=== PATIENT | female | born 1995 | race Caucasian/White ===

== ENCOUNTER 2024-02-21 09:37 | Outpatient (CLI) | payer OTHER, SELFPAY | END 2024-02-21 09:38 | disposition home or self-care (01) | PROVIDERS: Visit Provider Obstetrics & Gynecology | DX: O20.9 Hemorrhage in early pregnancy, unspecified (principal) | CPT/HCPCS: 84702; 86850; 86900; 86901 ==

== ENCOUNTER 2024-03-07 15:56 | Outpatient (CLI) | payer OTHER, SELFPAY ==
--- NOTE | 2024-03-07 16:00 | CRLHL7_ITS ---
For Patients: As a result of the Century Cures Act, medical imaging exams and procedure reports are released immediately into your electronic medical record. You may view this report before your referring provider. If you have questions, please contact your health care provider. INDICATION: First trimester scan, establish dates. COMPARISON: None. TECHNIQUE: Real-time bull-scale imaging of the pelvis was performed. FINDINGS: Sonographic imaging demonstrates a single living intrauterine gestation. The embryo demonstrates a regular cardiac rate measuring 172 beats per minute. The embryo`s crown-rump length measurement of 2.2 cm corresponds to a gestational age of 9 weeks 0 days with a sonographic due date of 10/10/2024. There is a normal-appearing yolk sac. There are no gross abnormalities noted within the embryo at this early state of development. The gestational sac has a normal appearance. There is no evidence of a perigestational hemorrhage. The amount of fluid within the sac appears appropriate for gestational age. The cervix is closed. Posterior mid uterine fibroid is present which is exophytic and measures 6.1 x 6.1 x 4.8 cm. Corpus luteal cyst left ovary. Right ovary not visualized. There are no suspicious fluid collections noted in the cul-de-sac. IMPRESSION: Single living intrauterine with sonographic gestational age 9 weeks 0 days and sonographic due date of 10/10/2024. Posterior exophytic uterine fibroid measuring 6.1 cm. Dictated by Fahad Frazier MD @ 03/09/2024 7:14:37 AM (Electronically Signed)
== END 2024-03-07 15:57 | disposition home or self-care (01) ==
LOC: US 15:57
PROVIDERS: Visit Provider Registered Nurse
DX: Z34.91 Encounter for supervision of normal pregnancy, unspecified, first trimester (principal); O34.11 Maternal care for benign tumor of corpus uteri, first trimester; Z3A.09 9 weeks gestation of pregnancy
CPT/HCPCS: 76817; 86703; 86706; 86803; 86850; 86900; 86901; 87086; 87340; 87491; 87591

== ENCOUNTER 2024-03-07 17:07 | Outpatient (CLI) | payer OTHER, SELFPAY ==
[2024-03-08 01:17] LABS: Chlamydia DNA Amplified* NOT DETECTED (No Detected); GC DNA Amplified* NOT DETECTED (No Detected)
== END 2024-03-07 17:08 | disposition home or self-care (01) ==
PROVIDERS: Visit Provider Registered Nurse
DX: Z34.91 Encounter for supervision of normal pregnancy, unspecified, first trimester (principal); Z3A.08 8 weeks gestation of pregnancy
CPT/HCPCS: 86592; 86703; 86704; 86706; 86762; 86787; 86803; 86850; 86900; 86901; 87086; 87340; 87491; 87591

== ENCOUNTER 2024-05-30 15:58 | Outpatient (CLI) | payer OTHER, SELFPAY ==
--- NOTE | 2024-05-30 16:00 | CRLHL7_ITS ---
For Patients: As a result of the Century Cures Act, medical imaging exams and procedure reports are released immediately into your electronic medical record. You may view this report before your referring provider. If you have questions, please contact your health care provider. INDICATION: Evaluate anatomy. COMPARISON: 03/07/2024 TECHNIQUE: Real time bull scale imaging of the fetus was performed as well as color Doppler analysis of the umbilical vessels. FINDINGS: Sonographic imaging demonstrates a single living intrauterine gestation. Fetus demonstrates a regular cardiac rate of 150 beats per minute. Fetus has a breech position. The placenta lies posteriorly without evidence of placenta previa. Placental edge 7.2 cm from the internal cervical os. Amniotic fluid volume appears normal. Single deepest vertical pocket: 5.6 cm. The cervix is closed and measures 4.7 cm in length. The composite ultrasound gestational age is calculated at 21 weeks 3 days with an estimated sonographic due date of 10/07/2024. The estimated weight is 411 grams which lies at the 67th %. The following biometric measurements were obtained: Biparietal diameter: 4.9 cm/20 weeks 5 days 44th% Head circumference: 18.8 cm/21 weeks 1 day 51st% Abdominal circumference: 16.9 cm/21 weeks 6 days 77th% Femur length: 3.4 cm/20 weeks 4 days 31st% The HC/AC ratio measures: 1.11 range (1.06-1.24) On anatomic survey, there is a normal appearance of the cerebral ventricles, cavum septi pellucidi, cisterna magna and cerebellum. The nose, lips, and facial profile appear normal. The cervical, thoracic and lumbar spine are well visualized and appear normal. There is a normal four-chamber heart view and the left and right ventricular outflow tracts appear normal. The diaphragm and stomach appear normal. The kidneys and bladder also appear normal. There is a normal three-vessel cord and cord insertion site. The four extremities appear normal. Left posterior uterine fibroid again noted measuring 6.3 x 5.3 x 5.8 cm. IMPRESSION: Concordance of clinical and sonographic dating. No intrinsic abnormalities noted on anatomic survey. Similar uterine fibroid. Dictated by Fahad Frazier MD @ 05/31/2024 4:25:15 PM (Electronically Signed)
== END 2024-05-30 15:59 | disposition home or self-care (01) ==
PROVIDERS: Visit Provider Advanced Practice Midwife
DX: Z34.92 Encounter for supervision of normal pregnancy, unspecified, second trimester (principal); Z3A.21 21 weeks gestation of pregnancy
CPT/HCPCS: 76805

== ENCOUNTER 2024-07-18 16:11 | Outpatient (CLI) | payer OTHER, SELFPAY | END 2024-07-18 16:12 | disposition home or self-care (01) | LOC: NFLDREF 07-21 05:39 | PROVIDERS: Visit Provider Advanced Practice Midwife | DX: Z34.92 Encounter for supervision of normal pregnancy, unspecified, second trimester (principal); Z3A.27 27 weeks gestation of pregnancy | CPT/HCPCS: 86592 ==

== ENCOUNTER 2024-09-12 17:09 | Outpatient (CLI) | payer OTHER, SELFPAY ==
[2024-09-13 13:57] LABS: Strep B DNA Probe Negative (Negative)
[2024-09-14 00:53] LABS: Strep B Susceptibility Needed? No
== END 2024-09-12 17:10 | disposition home or self-care (01) ==
LOC: NFLDREF 17:09
PROVIDERS: Visit Provider Midwife
DX: Z34.93 Encounter for supervision of normal pregnancy, unspecified, third trimester (principal); Z3A.35 35 weeks gestation of pregnancy
CPT/HCPCS: 87081; 87653

== ENCOUNTER 2024-10-10 19:18 | Inpatient (IN) | payer OTHER, SELFPAY ==
[2024-10-10 19:32] VITALS: BMI 29.8
[2024-10-10 19:42] VITALS: BP 123/76; PULSE 71
--- NOTE | 2024-10-10 19:56 | W.PM.LDBA ---
Subjective History of Present Illness Narrative: Raya is a 29 yo at 39 6/7 weeks gestation is being admitted to Labor and Delivery for elective induction of labor due to weather/blizzard conditions coming in and childcare. She is having occasional contractions but nothing painful. She denies any leaking of fluid or bleeding. She is supported in labor by her , Donald. Her full history and physical was dictated by Vipul Motley CNM on 09/19/2024. She was in clinic earlier this evening and her cervix was 2/70/-2. Please see this for details. Specific Issues/Plans G 2 P 1 Dad: Donald; daughter: Calixto, it is another girl! H&P 09/19/24 William Motley CNM # Posterior exophytic uterine fibroid measuring 6.1 cm. # history of anxiety and depression. Currently stable without medication. Was on meds PP last delivery # Postcoital spotting. Pelvic exam normal. Chlamydia, gonorrhea, wet prep obtained. 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 Recommended. TDAP:07/31/24 RSV: 08/30/2024 Flu: 05/03/2024 OB - Problem Based A/P Additional Plan (1) Encounter for elective induction of labor: Status: Acute (2) Anxiety and depression: Status: Acute (3) 39 weeks gestation of : Status: Acute Plan ASSESSMENT:? 29 yo at 39.6 weeks gestation? complicated by:? # Posterior exophytic uterine fibroid measuring 6.1 cm. # history of anxiety and depression. Currently stable without medication. Was on meds PP last delivery # Postcoital spotting. Pelvic exam normal. Chlamydia, gonorrhea, wet prep obtained. 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 Category 1 FHR pattern.?? Labor complicated by: none? GBS negative? ? PLAN:? 1. Routine intrapartum cares as ordered. Continue with expectant management? 2. Monitoring per policy, continuous with cytotec.? 3. Planning an epidural when she is ready. Candidate for analgesia of choice, when desired.?? 4. Patient encouraged to reposition and ambulate to promote physiologic labor and .? 5. Anticipate ? Delivery/Labor/Induction Plan Plan: induction Induction method: per misoprostol protocol OB Exam Physical Exam Vital signs: Pulse BP 71 123/76 10/10/24 19:42 10/10/24 19:42 Narrative: Vitals Reviewed Constitutional:? Alert and oriented x3 HEENT:? Normocephalic, atraumatic Neck:? Supple Lungs:? Clear to auscultation bilaterally Heart:? Regular rate and rhythm, no murmur, rub or gallop Abdomen:? Soft, nontender, and gravid. Vertex by Gab's, confirmed with cervical exam. Extremities:? No edema or erythema Cervix: Deferred, done earlier today NST: 125 bpm/moderate variability/15x15 accelerations/no decelerations/contractions occasionally
[2024-10-10 20:02] LABS: Basophils Absolute Auto 0.02 K/uL (0.00-0.30); Basophils Percent Auto 0.2 % (0.0-3.0); Eosinophils Absolute Auto 0.05 K/uL (0.00-0.50); Eosinophils Percent Auto 0.5 % (0.0-7.0); Hematocrit 37.1 % (33.0-51.0); Hemoglobin* 12.5 gm/dL (12.0-16.0); Immature Granulocytes Abs Auto 0.01 K/uL (0.00-0.30); Immature Granulocytes Pct Auto 0.1 %; Lymphocytes Absolute Auto 2.13 K/uL (0.90-2.90); Lymphocytes Percent Auto 22.5 % (20-44); Mean Corpuscular HGB Conc 34 gm/dL (32-36); Mean Corpuscular Hemoglobin 31 pg (26-34); Mean Corpuscular Volume 92 fL (80-100); Monocytes Percent Auto 9.5 % (0.0-11.0); Neutrophils Absolute Auto 6.35 K/uL (1.7-7.0); Neutrophils Percent Auto 67.2 % (42.0-72.0); Platelet Count* 209 K/uL (140-440); RDW Coefficient of Variation % 13.3 % (11.5-15.5); Red Blood Count 4.05 m/uL (4.00-5.20); White Blood Count* 9.46 K/uL (4.50-11.00)
[2024-10-10 20:04] LABS: Slide Review Reflex No
[2024-10-10] MEDS: miSOPROStoL 25 MCG/0.25 TABLET VAGINAL (20:19)
[2024-10-10] MEDS: MORPHINE 10 MG/ML inj IM (21:16)
[2024-10-10] MEDS: hydrOXYzine pamoate 25 MG CAPSULE 100 MG PO (21:16)
[2024-10-10 21:21] VITALS: RESP 18; TEMP 37
[2024-10-10] MEDS: CALCIUM CARBONATE 500 MG CHEW PO (21:21)
[2024-10-10] MEDS: LACTATED RINGERS 1000 ML 1,000 ML 500 ML IV (22:51)
[2024-10-10 22:58] VITALS: PULSE 67; O2SAT 100
[2024-10-10 23:03] VITALS: PULSE 67; RESP 18; TEMP 36.8; O2SAT 89; O2SAT 90
[2024-10-10 23:08] VITALS: PULSE 70; O2SAT 100
[2024-10-10 23:25] VITALS: BP 129/67; PULSE 56; RESP 18; TEMP 36.8
[2024-10-11] VITALS (58 sets, daily range): BP systolic 115–158; BP diastolic 58–96; PULSE 49–95; RESP 16–18; TEMP 36.2–37.2; O2SAT 90–100
[2024-10-11] MEDS: LACTATED RINGERS 1000 ML 1,000 ML 125 ML IV ×2 (00:56→02:46)
[2024-10-11] MEDS: LIDOCAINE 2% (PF) 5 ML VIAL EPIDURAL (02:44)
[2024-10-11] MEDS: ROPIVACAINE 0.2% 100 ml 100 ML 12 MG EPIDURAL (02:49)
--- NOTE | 2024-10-11 03:07 | P.ANBPRC_ITS ---
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 . Lives in [place]. What is your current living situation?: I presently have a place to live Problems where you live: no known problems In the past 12 months, utilities in danger of being shut off: no In past 12 months, lack of transportation kept you from medical appts, meetings, work, or getting things needed for daily living: no In the past 12 mos, have been you worried that your food would run out before you had money to buy more?: never true In the past 12 mos, the food you bought just didn't last and you didn't have money to buy more?: never true Smoking Status: Former smoker How often does anyone, including family, friends and others, physically hurt you : never How often does anyone, including family, friends and others, insult or talk down to you: never How often does anyone, including family, friends and others, threaten you with harm: never How often does anyone, including family, friends and others, scream or curse at you: never Meds Home Medications and Allergies Home Medications ?Medication ?Instructions ?Recorded ?Confirmed ?Type calcium 260 mg (phos,tribasic)-D3 1 tab PO 03/07/24 10/10/24 History 25 mcg-herbal 50 mg chewable tablet (Alive Calcium-Vitamin D3) cholecalciferol (vitamin D3) 25 25 mcg PO QDAY 03/07/24 10/10/24 History mcg (1,000 unit) capsule docosahexaenoic acid 200 mg 200 mg PO 03/07/24 10/10/24 History capsule ( DHA) magnesium 250 mg tablet 250 mg PO QDAY PRN 06/20/24 10/10/24 History ferrous sulfate 325 mg (65 mg 325 mg PO QDAY 09/12/24 10/10/24 History iron) tablet (Feosol) Allergies Allergy/AdvReac Type Severity Reaction Status Date / Time No Known Drug Allergies Allergy Verified 10/10/24 20:08 Results Labs Labs: Laboratory Results - last 24 hr 10/10/24 19:55 WBC 9.46 RBC 4.05 Hgb 12.5 Hct 37.1 MCV 92 MCH 31 MCHC 34 RDW Coeff of Adeel 13.3 Plt Count 209 Neut % (Auto) 67.2 Lymph % (Auto) 22.5 [place] % (Auto) 9.5 Eos % (Auto) 0.5 Baso % (Auto) 0.2 Neut # (Auto) 6.35 Lymph # (Auto) 2.13 [place] # (Auto) 0.90 Eos # (Auto) 0.05 Baso # (Auto) 0.02 Abs Immat Gran (auto) 0.01 Imm/Tot Granulo (auto) 0.1 Blood Type A Positive Antibody Screen NEGATIVE Vital Signs Vital Signs: Last Vital Signs Temp 97.2 F L 10/11/24 03:02 Pulse 68 10/11/24 03:05 Resp 18 10/11/24 03:02 BP 125/58 L 10/11/24 03:05 Pulse Ox 100 10/11/24 03:06 Weight: 71.668 kg Height: 154.94 cm Anesthesia Procedures Epidural Insertion Patient Location: OB Start Time: Stop Time: Start Date: 10/11/24 Stop Date: 10/11/24 Reason for Block: procedure for pain Patient Position: sitting Performed By: Daria Gonzalez Preanesthetic Checklist: IV checked, risks and benefits discussed, monitors and equipment checked, pre-op evaluation, timeout performed and anesthesia consent Prep: chlorhexidine gluconate Monitoring: blood pressure monitoring, continuous pulse oximetry and heart rate Approach: midline Vertebral Space: lumbar (1-5) Epidural Technique: LUBNA saline Needle Type: Tuohy needle Injection Technique: continuous catheter (continuous catheter) Needle gauge: 17 Needle Length (cm): 10 cm Needle Insertion Depth (cm): 5 Catheter Gauge: 19 Catheter Type: multi-orifice Catheter at skin depth (cm): 10 Test Dose Result: negative and lidocaine 1.5% with epinephrine 1 to 200,000
[2024-10-11] MEDS: OXYTOCIN 30 unit/500 ML in NS 30 UNIT/500 ML BAG 300 UNIT IVPB (03:22)
--- NOTE | 2024-10-11 03:46 | W.PM.VAGDE_ITS ---
OB Procedure Vag Delivery Mother Details Mother Details: The patient is a 29 year-old, 2, now Para 2, admitted on 10/10/24 at 40.0 weeks gestation. : 2 Para: 2 Weeks Gestation: 40.0 Admission Date: 10/10/24 Additional Details Amniotic Membrane Status: SROM Amniotic Membrane Rupture Date: 10/11/24 Amniotic Membrane Rupture Time: 02:00 Amniotic Membrane Fluid Description: Clear Analgesia/Anesthesia Type: Epidural Waterbirth: No Pitcoin: Yes ([facility] only) Intrapartal Events: Labor Induction and Precipitous Labor <3 Hrs Labor Onset: 01:45 Complete: 03:11 Pushin:14 Heart: heart tones during second stage were category II with persistent deep v ariables, minimal variability, and rising baseline. Delivery was imminent so heart rate was closely monitored and patient was guided to push effectively. Delivery Details Delivery Date: 10/11/24 Delivery Time: 03:21 Route of delivery: Infant Gender: Female Infant Viability: Alive; Heart Rate Present Position at Delivery: OA Delivery Details: Patient was admitted for elective induction of labor and progressed quickly following 1 dose of cytotec. SROM noted at 0200 with clear fluid. She was able to sit for an epidural and get some relief. Patient was complete at 0311 and pushing at 0314. of a viable female at 0321 in right tilt on the bed. Vertex delivered OA. No nuchal cord or shoulder. Body delivered easily and without incident. passed to mothers abdomen with a vigorous cry. Cord was clamped and cut at > 5 minutes. APGARS were 7 at one minute and 9 at five minutes respectively. Mouth was bulb suctioned. Intact placenta with a 3 vessel cord delivered spontaneously at 0335. Fundus firm. Right periurethral identified, small and hemostatic; repair not indicated. QBL 400 cc. Mother and baby stable; mother plans to breastfeed. Infant weight pending. 1 Minute Interval Total Score: 7 5 Minute Interval Total Score: 9 Additional Details Shoulder Dystocia: No Placenta Delivery Time: 03:35 Placental Delivery Description: Spontaneous Delivery repair: Vicryl Procedure Done: Global Blood Loss: 400 Laceration: Periurethral - 1st Degree Blood Loss Measurement Type: QBL Bakri Used: No Sponge/Need Count Correct: Yes Cord Vessel Description: 3 Vessels Event Summary Status: Mother and infant were stable after delivery. Patient had elevated blood pressure while sitting for an epidural and has continued to have them in recovery. Labs are ordered and pending. No p/c ratio obtained now that patient is . Disposition: floor
--- NOTE | 2024-10-11 03:46 | PM.OBPNL ---
Subjective Date Seen: 10/11/24 Narrative: Raya is a 29 yo at 40 0/7 weeks gestation that presented for elective induction of labor last evening due to impending blizzard and childcare. Her IOL was started with a dose of cytotec. Fetus began having spontaneous decelerations about 2 hours post-cytotec shortly after morphine and Vistaril was given for sleep. heart rate improved temporarily with fluids, position changes, and guided breathing. Continued to monitor FHR which remained category II with moderate variability and accelerations present. At about 1 am I was notified by RN to assess heart tracing again for increased and more recurrent decelerations. Patient reported contractions were more intense, rating them 6/10 and was noted to have uterine tachysystole with very regular and close contractions. She proceeded to have heart rate changes dispite positioning and fluids. SVE was performed to assess labor status and progress and was found to be 5/90/0. Her plan for pain was epidural so it was discussed that she have on placed and then we discuss AROM vs pitocin for labor augmentation. Dr. Patel was notified for concerning continued Category II tracing. Shortly after, patient notified RN that her water broke. Objective Exam: Objective: Constitutional: Alert and oriented x3, moderate distress, coping well Vital signs stable, see nurse documentation Abdomen: gravid, contractions palpate moderate with contractions and soft between Cervix: 5 cm/90%/0 station/vertex NST: 150 bpm/moderate variability/no accelerations/recurrent variable decelerations/contractions every 1-3 minutes Vital Signs: Last Vital Signs Temp 97.8 F 10/11/24 03:35 Pulse 78 10/11/24 03:36 Resp 18 10/11/24 03:35 BP 126/96 H 10/11/24 03:36 Pulse Ox 99 10/11/24 03:11 Assessment Amniotic Membrane Status: SROM Plan Plan: ASSESSMENT:? 29 yo at 40 weeks gestation? complicated by:? # Posterior exophytic uterine fibroid measuring 6.1 cm. # history of anxiety and depression. Currently stable without medication. Was on meds PP last delivery # Postcoital spotting. Pelvic exam normal. Chlamydia, gonorrhea, wet prep obtained. 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 Category 2 FHR pattern.?? Labor complicated by: none? GBS negative? ? PLAN:? 1. Routine intrapartum cares as ordered. Continue with expectant management. Discussed augmentation with AROM vs pitocin to assist in labor progress due to heart rate concerns while attempting to speed labor but monitor tolerance of labor. 2. Monitoring per policy, continuous due to continued recurrent decelerations. 3. Planning an epidural when she is ready. Candidate for analgesia of choice, when desired. Anesthesia is notified that patient is requesting epidural at this time.?? 4. Patient encouraged to reposition and ambulate to promote physiologic labor and .? 5. Dr. Patel was notified of persistent Cat 2 with recurrent variables and patient's current labor progress in case Section was needed. 6. Anticipate ?
[2024-10-11 04:11] LABS: Alanine Aminotransferase* 13 U/L (4-35); Aspartate Amino Transferase* 21 U/L (12-35); Blood Urea Nitrogen* 16 mg/dL (5-24); Creatinine* 0.8 mg/dL (0.5-1.5); Est. Creatinine Clearance* 77.59; Estimated Glomerular Filt Rate 102 ml/min
--- NOTE | 2024-10-11 12:39 | PM.ANPOST ---
Post Anesthesia Note Post Anesthesia Note Patient seen: Inpatient Respiratory Status: adequate Cardiovascular Status: adequate Mental Status: baseline Pain: adequate Temp: baseline Anesthetic awareness: N/A Complications: none Follow care: none
[2024-10-11] MEDS: ACETAMINOPHEN 500 MG TABLET 1000 MG PO (15:47)
[2024-10-12 01:30] VITALS: BP 115/76; PULSE 65; RESP 16; TEMP 36.5; O2SAT 96
[2024-10-12] MEDS: ACETAMINOPHEN 500 MG TABLET 1000 MG PO (04:53)
[2024-10-12 05:16] VITALS: BP 118/70; PULSE 62; RESP 16; TEMP 36.4; O2SAT 95
[2024-10-12 08:10] VITALS: BP 122/78; PULSE 65; RESP 16; TEMP 37; O2SAT 95
--- NOTE | 2024-10-12 09:08 | P.DS_ITS ---
DS: Providers Provider Date Seen: 10/12/24 Date of admission: 10/10/24 19:18 Primary care physician: Not a Local Provider Admitting Clinician: Aileen Joshua CNM Attending Physician on discharge: Guerda Gallardo CNM Date of Discharge: 10/12/24 DS: Diagnosis Discharge Diagnosis (1) Gestational hypertension: Status: Acute (2) care and examination of lactating mother: Status: Acute (3) (normal spontaneous vaginal delivery): Status: Acute Exam Narrative: Exam Narrative: VSS, afebrile GENERAL APPEARANCE: ?normal affect, alert, no distress MOOD: ?appropriate HEENT: normocephalic, neck supple, full ROM CHEST: ?Symmetrical chest wall movement. ?Normal respiratory effort. ?Clear to auscultation HEART: ?regular rate and rhythm ABDOMEN: ?soft, non-tender. Uterine fundus is firm, 1 below Umbilicus, Midline and is appropriate for the stage of recovery. ?Bowel sounds present. PERINEUM: ?mild edema of the perineum, there is a 1st degree periurethral laceration that is healing well. EXTREMITIES: ?normal and trace edema Const: Vital Signs, click to edit/add: Vital Signs - 24 hr 10/11/24 11:47 10/11/24 15:49 10/11/24 20:15 Temperature 97.4 F L 98.3 F 97.9 F Pulse Rate [Pulse Oximeter] 72 57 L 78 Respiratory Rate 16 16 16 Blood Pressure [Le ft Arm] 117/78 128/80 115/75 Pulse Oximetry 96 97 96 Oxygen Delivery Me thod Room Air Room Air Room Air 10/12/24 01:30 10/12/24 05:16 10/12/24 08:10 Temperature 97.7 F 97.5 F L 98.6 F Pulse Rate [Pulse Oximeter] 65 62 65 Respiratory Rate 16 16 16 Blood Pressure [Le ft Arm] 115/76 118/70 122/78 Pulse Oximetry 96 95 95 Oxygen Delivery Me thod Room Air Room Air Room Air Documenting provider has reviewed patient's vital signs: yes OB - DS: Summary Hospital Course Hospital Course: Raya is a 29 y.o. who was admitted to L & D for induction of labor. ?She had an uncomplicated NVD.?The patient feels well. ?The pain is well controlled with current medications. ?She has no new complaints. ?She is breast feeding and reports things are going well.? the patient has done well.? Vitals have been stable.? She has remained afebrile.? Has a good appetite, is tolerating a general diet. ?She is voiding without difficulty.? She is passing gas and has had a bowel movement.? She is ambulating and denies any dizziness.? Has Small amount of rubra lochia. ?She is planning Mirena IUD for pr egnancy prevention. Peripartum Data delivery method: Vaginal Laceration description: Periurethral - 1st Degree complications: none [place] Gender: Female Discharge Plan: Home Status at Discharge Functional status at discharge: independent ambulation Overall status at discharge: patient is progressing back to baseline Time Spent with Patient Time attestation: Total time spent providing and/or coordinating discharge services: Time spent: Less than 30 minutes Discharge Plan Discharge Disposition: Home, Self-Care Date of Admission: 10/10/24 19:18 Attending Provider on Discharge: Guerda Gallardo Primary Care Provider: Provider,Not a Local Condition: Stable Anticipated Discharge Date/Time: 10/12/24 12:00 Discharge Medications: New acetaminophen 500 mg Tablet 1,000 mg PO Q6H PRNQty: 0 0RF docusate sodium 100 mg Capsule 100 mg PO DAILY Qty: 90 0RF ibuprofen 600 mg Tablet 600 mg PO Q6H PRNQty: 60 0RF Continued DHA 200 mg capsule 200 mg PO DAILY Alive Calcium-Vitamin D3 260 mg calcium- 25 mcg-50 mg tablet,chewable 1 tab PO DAILY cholecalciferol (vitamin D3) 25 mcg (1,000 unit) capsule 25 mcg PO QDAY valacyclovir 1 gram tablet 2,000 mg PO Q12H PRN (Reason: herpes labialis) Qty: 12 2RF Rx Instructions: 2000mg PO q12 hr x1 day. Start CARLY after symptom onset. magnesium 250 mg tablet 250 mg PO QDAY PRN famotidine [Pepcid] 20 mg tablet 20 mg PO QHS Qty: 90 1RF Discontinued ferrous sulfate [Feosol] 325 mg (65 mg iron) tablet 325 mg PO QDAY Discharge Orders: Discharge Order (Routine); Ordered 10/12/24 Ordered By: Guerda Gallardo Patient Education: OB Over the Counter Medication Information, OB Vaginal/Breast Feeding Additional Instructions: Discharge instructions were reviewed with the patient including signs and symptoms of infection and home going medications Nothing vaginally for 6 weeks: no tampons or intercourse Off Work or School for 6 weeks [facility] for a BP check?in 3-5 days Call with BP greater than or equal to 150/100 2-week visit: discuss infant feeding concerns, review control options and screen for anxiety/depression. 6-week visit for an annual exam. consultation services are available to all mothers and babies for the first year after delivery.? To make an appointment, please call [phone]. Activity Level: Activity as Tolerated Discharge Diet: Regular Follow Up Appointments: [facility] [Provider Group] Forms: [employer] Info Instructions
[2024-10-12 19:40] LABS: Rapid Plasma Reagin (RPR) Non Reactive (Non Reactive)
== END 2024-10-12 12:50 | disposition home or self-care (01) | DRG 807 ==
PROVIDERS: Admitting Provider Midwife; Visit Provider Midwife
DX: O13.4 Gestational [pregnancy-induced] hypertension without significant proteinuria, complicating childbirth (principal); Z37.0 Single live birth; O99.344 Other mental disorders complicating childbirth; F41.9 Anxiety disorder, unspecified; Z3A.39 39 weeks gestation of pregnancy; O34.13 Maternal care for benign tumor of corpus uteri, third trimester; D25.9 Leiomyoma of uterus, unspecified; F32.A Depression, unspecified; O76 Abnormality in fetal heart rate and rhythm complicating labor and delivery; O71.82 Other specified trauma to perineum and vulva
CPT/HCPCS: 01967; 36415; 59200; 82565; 84450; 84460; 84520; 85025; 85027; 86592; 86850; 86900; 86901; A9270; J2270; J2371; J2795; J7120

== ENCOUNTER 2025-02-06 10:30 | Outpatient (RCR) | payer OTHER, SELFPAY | END 2025-06-06 23:59 | disposition home or self-care (01) | PROVIDERS: Visit Provider Midwife | DX: M62.08 Separation of muscle (nontraumatic), other site (principal); Z51.89 Encounter for other specified aftercare | CPT/HCPCS: 97112; 97161 ==